=== PATIENT | female | born 1960 | race Caucasian/White ===

== ENCOUNTER 2017-06-28 08:00 | Day surgery (SDC) | payer MEDICARE, OTHER ==
[~2017-06-28 08:00] MED LIST: ACEASPCAF PO; ALBIPROI INH; ALBU90OI61 INH; AMIO200 PO; ASPI325; ASPI325 PO; ASPI81CH PO; ATOR80 PO; BUME2 PO; CARV25; CARV25 PO; CARV3.125 PO; CEPH500 PO; CLOP75 PO; COLCRYS0.6 MG PO; FAMO20 PO; FURO40 PO; FURO80 PO; GLIP10 PO; GUAI600T33 PO; HYDACE5; HYDCHL25 PO; HYDGUAL120 PO; HYDR1TAB94 PO; IBUP400 PO; INSN100I SC; INSR10I SC; INSU100I6 SC; INSULANPEN SC; LEVFLO500 PO; LEVO750 PO; LISHYD1012; LISI20 PO; LOSA25 PO; METF500 PO; METF850; METFORMIN; METOLAZONE PO; MULTCH; NAPR550 PO; NATE60; OXYACE7.5T PO; PIOG15 PO; POTCHL20ER PO; PRAV20 PO; PRED20 PO; Percocet 5-3251 EACH PO; SPIR25 PO; TIOT18 INH; VARE1 PO; VITAMIN D-32000 UNIT PO; VYTORIN; ZESTRIL PO; [UNRECOGNIZED DRUG - CODE] PO
[2017-12-27] MEDS ORDERED: Midodrine HCl10 MG PO (11:13)
[2017-12-29] MEDS ORDERED: PANT20 PO (11:53)
[2018-04-01] MEDS ORDERED: ALBU2.5V5 NEB (17:24)
[2018-04-01] MEDS ORDERED: DOCU100 PO (17:25)
[2018-04-01] MEDS ORDERED: LINZESS145 MCG PO (17:26)
[2018-04-01] MEDS ORDERED: POTCHL20ER PO (17:29)
[2018-04-01] MEDS ORDERED: METO5A PO ×2 (17:30→22:47)
[2018-04-01] MEDS ORDERED: BISA5EC PO (22:38)
[2018-04-01] MEDS ORDERED: BISA10S PR (22:41)
[2018-04-01] MEDS ORDERED: Milk Of Ma400 MG/5 M PO (22:43)
[2018-04-01] MEDS ORDERED: GAVILAX17 GM PO (22:44)
[2018-04-01] MEDS ORDERED: TUMS X-STR300 MG PO (22:49)
[2018-04-10] MEDS ORDERED: ALBU2.5V5 NEB (13:08)
[2018-04-10] MEDS ORDERED: Atropine Su0.1 MG/ML SL (13:09)
[2018-04-10] MEDS ORDERED: SUBLIMAZE50 MCG/1 M IV (13:19)
[2018-04-10] MEDS ORDERED: Lorazepam2 MG/1 ML IV (13:24)
[2018-04-10] MEDS ORDERED: Transderm-Scop1 EACH TD (13:25)
== END 2017-06-28 10:53 | disposition home or self-care (01) ==
LOC: WOUND 08:00
PROC: 2W1RX6Z Compression of Left Lower Leg using Pressure Dressing (ICD-10-PCS; principal; 2017-06-28)
PROC: 2W1QX6Z Compression of Right Lower Leg using Pressure Dressing (ICD-10-PCS; principal; 2017-06-28)
DX: Z48.00 Encounter for change or removal of nonsurgical wound dressing (principal); E11.621 Type 2 diabetes mellitus with foot ulcer; L97.221 Non-pressure chronic ulcer of left calf limited to breakdown of skin; F17.210 Nicotine dependence, cigarettes, uncomplicated; R60.9 Edema, unspecified
CPT/HCPCS: G0463

== ENCOUNTER 2017-07-05 12:24 | Day surgery (SDC) | payer MEDICARE, OTHER ==
[2017-12-27] MEDS ORDERED: Midodrine HCl10 MG PO (11:13)
[2017-12-29] MEDS ORDERED: PANT20 PO (11:53)
[2018-04-01] MEDS ORDERED: ALBU2.5V5 NEB (17:24)
[2018-04-01] MEDS ORDERED: DOCU100 PO (17:25)
[2018-04-01] MEDS ORDERED: LINZESS145 MCG PO (17:26)
[2018-04-01] MEDS ORDERED: POTCHL20ER PO (17:29)
[2018-04-01] MEDS ORDERED: METO5A PO ×2 (17:30→22:47)
[2018-04-01] MEDS ORDERED: BISA5EC PO (22:38)
[2018-04-01] MEDS ORDERED: BISA10S PR (22:41)
[2018-04-01] MEDS ORDERED: Milk Of Ma400 MG/5 M PO (22:43)
[2018-04-01] MEDS ORDERED: GAVILAX17 GM PO (22:44)
[2018-04-01] MEDS ORDERED: TUMS X-STR300 MG PO (22:49)
[2018-04-10] MEDS ORDERED: ALBU2.5V5 NEB (13:08)
[2018-04-10] MEDS ORDERED: Atropine Su0.1 MG/ML SL (13:09)
[2018-04-10] MEDS ORDERED: SUBLIMAZE50 MCG/1 M IV (13:19)
[2018-04-10] MEDS ORDERED: Lorazepam2 MG/1 ML IV (13:24)
[2018-04-10] MEDS ORDERED: Transderm-Scop1 EACH TD (13:25)
== END 2017-07-05 16:10 | disposition home or self-care (01) ==
LOC: WOUND 12:24
PROC: 2W1RX7Z Compression of Left Lower Leg using Intermittent Pressure Device (ICD-10-PCS; principal; 2017-07-05)
DX: Z48.00 Encounter for change or removal of nonsurgical wound dressing (principal); E11.622 Type 2 diabetes mellitus with other skin ulcer; E11.21 Type 2 diabetes mellitus with diabetic nephropathy; F17.210 Nicotine dependence, cigarettes, uncomplicated; L97.221 Non-pressure chronic ulcer of left calf limited to breakdown of skin

== ENCOUNTER 2017-07-12 12:30 | Day surgery (SDC) | payer MEDICARE, OTHER ==
[2017-12-27] MEDS ORDERED: Midodrine HCl10 MG PO (11:13)
[2017-12-29] MEDS ORDERED: PANT20 PO (11:53)
[2018-04-01] MEDS ORDERED: ALBU2.5V5 NEB (17:24)
[2018-04-01] MEDS ORDERED: DOCU100 PO (17:25)
[2018-04-01] MEDS ORDERED: LINZESS145 MCG PO (17:26)
[2018-04-01] MEDS ORDERED: POTCHL20ER PO (17:29)
[2018-04-01] MEDS ORDERED: METO5A PO ×2 (17:30→22:47)
[2018-04-01] MEDS ORDERED: BISA5EC PO (22:38)
[2018-04-01] MEDS ORDERED: BISA10S PR (22:41)
[2018-04-01] MEDS ORDERED: Milk Of Ma400 MG/5 M PO (22:43)
[2018-04-01] MEDS ORDERED: GAVILAX17 GM PO (22:44)
[2018-04-01] MEDS ORDERED: TUMS X-STR300 MG PO (22:49)
[2018-04-10] MEDS ORDERED: ALBU2.5V5 NEB (13:08)
[2018-04-10] MEDS ORDERED: Atropine Su0.1 MG/ML SL (13:09)
[2018-04-10] MEDS ORDERED: SUBLIMAZE50 MCG/1 M IV (13:19)
[2018-04-10] MEDS ORDERED: Lorazepam2 MG/1 ML IV (13:24)
[2018-04-10] MEDS ORDERED: Transderm-Scop1 EACH TD (13:25)
== END 2017-07-12 14:54 | disposition home or self-care (01) ==
LOC: WOUND 12:30
PROC: 2W1 Placement, Anatomical Regions, Compression (ICD-10-PCS; principal; 2017-07-12)
PROC: 2W1RX6Z Compression of Left Lower Leg using Pressure Dressing (ICD-10-PCS; principal; 2017-07-12)
PROC: 2W1QX6Z Compression of Right Lower Leg using Pressure Dressing (ICD-10-PCS; principal; 2017-07-12)
DX: Z48.00 Encounter for change or removal of nonsurgical wound dressing (principal); E11.622 Type 2 diabetes mellitus with other skin ulcer; E11.21 Type 2 diabetes mellitus with diabetic nephropathy; L97.221 Non-pressure chronic ulcer of left calf limited to breakdown of skin; F17.210 Nicotine dependence, cigarettes, uncomplicated
CPT/HCPCS: G0463

== ENCOUNTER 2017-07-19 00:56 | Day surgery (SDC) | payer MEDICARE, OTHER ==
[2017-12-27] MEDS ORDERED: Midodrine HCl10 MG PO (11:13)
[2017-12-29] MEDS ORDERED: PANT20 PO (11:53)
[2018-04-01] MEDS ORDERED: ALBU2.5V5 NEB (17:24)
[2018-04-01] MEDS ORDERED: DOCU100 PO (17:25)
[2018-04-01] MEDS ORDERED: LINZESS145 MCG PO (17:26)
[2018-04-01] MEDS ORDERED: POTCHL20ER PO (17:29)
[2018-04-01] MEDS ORDERED: METO5A PO ×2 (17:30→22:47)
[2018-04-01] MEDS ORDERED: BISA5EC PO (22:38)
[2018-04-01] MEDS ORDERED: BISA10S PR (22:41)
[2018-04-01] MEDS ORDERED: Milk Of Ma400 MG/5 M PO (22:43)
[2018-04-01] MEDS ORDERED: GAVILAX17 GM PO (22:44)
[2018-04-01] MEDS ORDERED: TUMS X-STR300 MG PO (22:49)
[2018-04-10] MEDS ORDERED: ALBU2.5V5 NEB (13:08)
[2018-04-10] MEDS ORDERED: Atropine Su0.1 MG/ML SL (13:09)
[2018-04-10] MEDS ORDERED: SUBLIMAZE50 MCG/1 M IV (13:19)
[2018-04-10] MEDS ORDERED: Lorazepam2 MG/1 ML IV (13:24)
[2018-04-10] MEDS ORDERED: Transderm-Scop1 EACH TD (13:25)
== END 2017-07-19 22:44 | disposition home or self-care (01) ==
LOC: WOUND 00:56
DX: Z48.00 Encounter for change or removal of nonsurgical wound dressing (principal); E11.21 Type 2 diabetes mellitus with diabetic nephropathy; L97.221 Non-pressure chronic ulcer of left calf limited to breakdown of skin; F17.210 Nicotine dependence, cigarettes, uncomplicated
CPT/HCPCS: G0463

== ENCOUNTER 2017-09-03 12:18 | Day surgery (SDC) | payer MEDICARE, OTHER ==
[2017-12-27] MEDS ORDERED: Midodrine HCl10 MG PO (11:13)
[2017-12-29] MEDS ORDERED: PANT20 PO (11:53)
[2018-04-01] MEDS ORDERED: ALBU2.5V5 NEB (17:24)
[2018-04-01] MEDS ORDERED: DOCU100 PO (17:25)
[2018-04-01] MEDS ORDERED: LINZESS145 MCG PO (17:26)
[2018-04-01] MEDS ORDERED: POTCHL20ER PO (17:29)
[2018-04-01] MEDS ORDERED: METO5A PO ×2 (17:30→22:47)
[2018-04-01] MEDS ORDERED: BISA5EC PO (22:38)
[2018-04-01] MEDS ORDERED: BISA10S PR (22:41)
[2018-04-01] MEDS ORDERED: Milk Of Ma400 MG/5 M PO (22:43)
[2018-04-01] MEDS ORDERED: GAVILAX17 GM PO (22:44)
[2018-04-01] MEDS ORDERED: TUMS X-STR300 MG PO (22:49)
[2018-04-10] MEDS ORDERED: ALBU2.5V5 NEB (13:08)
[2018-04-10] MEDS ORDERED: Atropine Su0.1 MG/ML SL (13:09)
[2018-04-10] MEDS ORDERED: SUBLIMAZE50 MCG/1 M IV (13:19)
[2018-04-10] MEDS ORDERED: Lorazepam2 MG/1 ML IV (13:24)
[2018-04-10] MEDS ORDERED: Transderm-Scop1 EACH TD (13:25)
== END 2017-09-03 16:52 | disposition home or self-care (01) ==
LOC: WOUND 12:18
DX: E11.21 Type 2 diabetes mellitus with diabetic nephropathy (principal); E11.622 Type 2 diabetes mellitus with other skin ulcer; L97.221 Non-pressure chronic ulcer of left calf limited to breakdown of skin; I87.2 Venous insufficiency (chronic) (peripheral); F17.218 Nicotine dependence, cigarettes, with other nicotine-induced disorders
CPT/HCPCS: 87070; 87075; 87077; 87147; 87186; 87205; G0463

== ENCOUNTER 2017-09-06 01:02 | Day surgery (SDC) | payer MEDICARE, OTHER ==
[2017-12-27] MEDS ORDERED: Midodrine HCl10 MG PO (11:13)
[2017-12-29] MEDS ORDERED: PANT20 PO (11:53)
[2018-04-01] MEDS ORDERED: ALBU2.5V5 NEB (17:24)
[2018-04-01] MEDS ORDERED: DOCU100 PO (17:25)
[2018-04-01] MEDS ORDERED: LINZESS145 MCG PO (17:26)
[2018-04-01] MEDS ORDERED: POTCHL20ER PO (17:29)
[2018-04-01] MEDS ORDERED: METO5A PO ×2 (17:30→22:47)
[2018-04-01] MEDS ORDERED: BISA5EC PO (22:38)
[2018-04-01] MEDS ORDERED: BISA10S PR (22:41)
[2018-04-01] MEDS ORDERED: Milk Of Ma400 MG/5 M PO (22:43)
[2018-04-01] MEDS ORDERED: GAVILAX17 GM PO (22:44)
[2018-04-01] MEDS ORDERED: TUMS X-STR300 MG PO (22:49)
[2018-04-10] MEDS ORDERED: ALBU2.5V5 NEB (13:08)
[2018-04-10] MEDS ORDERED: Atropine Su0.1 MG/ML SL (13:09)
[2018-04-10] MEDS ORDERED: SUBLIMAZE50 MCG/1 M IV (13:19)
[2018-04-10] MEDS ORDERED: Lorazepam2 MG/1 ML IV (13:24)
[2018-04-10] MEDS ORDERED: Transderm-Scop1 EACH TD (13:25)
== END 2017-09-06 22:45 | disposition home or self-care (01) ==
LOC: WOUND 01:02
DX: Z48.00 Encounter for change or removal of nonsurgical wound dressing (principal); E11.622 Type 2 diabetes mellitus with other skin ulcer; L97.221 Non-pressure chronic ulcer of left calf limited to breakdown of skin; E11.21 Type 2 diabetes mellitus with diabetic nephropathy; B95.62 Methicillin resistant Staphylococcus aureus infection as the cause of diseases classified elsewhere; I34.0 Nonrheumatic mitral (valve) insufficiency; F17.218 Nicotine dependence, cigarettes, with other nicotine-induced disorders
CPT/HCPCS: G0463

== ENCOUNTER 2017-09-13 14:10 | Day surgery (SDC) | payer MEDICARE, OTHER ==
[~2017-09-13 14:10] MED LIST changes: +CARV6.25 PO
== END 2017-09-13 22:52 | disposition home or self-care (01) ==
LOC: WOUND 14:10
PROC: 2W1RX6Z Compression of Left Lower Leg using Pressure Dressing (ICD-10-PCS; principal; 2017-09-13)
PROC: 2W1QX6Z Compression of Right Lower Leg using Pressure Dressing (ICD-10-PCS; principal; 2017-09-13)
DX: E11.622 Type 2 diabetes mellitus with other skin ulcer (principal); F17.210 Nicotine dependence, cigarettes, uncomplicated; L97.221 Non-pressure chronic ulcer of left calf limited to breakdown of skin; I87.2 Venous insufficiency (chronic) (peripheral); L97.819 Non-pressure chronic ulcer of other part of right lower leg with unspecified severity; E11.21 Type 2 diabetes mellitus with diabetic nephropathy
CPT/HCPCS: G0463

== ENCOUNTER 2017-09-20 14:12 | Day surgery (SDC) | payer MEDICARE, OTHER | END 2017-09-20 22:48 | disposition home or self-care (01) | LOC: WOUND 14:12 | DX: E11.622 Type 2 diabetes mellitus with other skin ulcer (principal); L97.222 Non-pressure chronic ulcer of left calf with fat layer exposed; E11.21 Type 2 diabetes mellitus with diabetic nephropathy; F17.210 Nicotine dependence, cigarettes, uncomplicated; E66.01 Morbid (severe) obesity due to excess calories ==

== ENCOUNTER 2017-09-27 14:00 | Day surgery (SDC) | payer MEDICARE, OTHER | END 2017-09-27 22:41 | disposition home or self-care (01) | LOC: WOUND 14:00 | PROC: 2W1QX6Z Compression of Right Lower Leg using Pressure Dressing (ICD-10-PCS; principal; 2017-09-27) | DX: E11.622 Type 2 diabetes mellitus with other skin ulcer (principal); F17.210 Nicotine dependence, cigarettes, uncomplicated; E11.21 Type 2 diabetes mellitus with diabetic nephropathy; L97.221 Non-pressure chronic ulcer of left calf limited to breakdown of skin | CPT/HCPCS: G0463 ==

== ENCOUNTER 2017-10-04 00:14 | Day surgery (SDC) | payer MEDICARE, OTHER | END 2017-10-04 22:38 | disposition home or self-care (01) | LOC: WOUND 00:14 | DX: Z48.00 Encounter for change or removal of nonsurgical wound dressing (principal); E11.21 Type 2 diabetes mellitus with diabetic nephropathy; L97.221 Non-pressure chronic ulcer of left calf limited to breakdown of skin; F17.210 Nicotine dependence, cigarettes, uncomplicated | CPT/HCPCS: 87081; G0463 ==

== ENCOUNTER → 2017-10-14 | Outpatient (CLI) | payer MEDICARE, OTHER ==
[2017-10-14 14:51] LABS: BASOPHILS ABSOLUTE AUTO 0.04 K/mm3 (0.00-0.23); BASOPHILS PERCENT AUTO 0 % (0-2); EOSINOPHILS ABSOLUTE AUTO 0.07 K/mm3 (0.00-0.68); EOSINOPHILS PERCENT AUTO 1 % (0-6); Hematocrit 37.3 % (33.0-51.0); IMMATURE GRAN ABSOLUTE AUTO 0.06 K/mm3 (0.00-0.10); IMMATURE GRAN PERCENT AUTO 0 % (0-1); LYMPHOCYTES ABSOLUTE AUTO 0.97 K/mm3 (0.84-5.20); LYMPHOCYTES PERCENT AUTO 7 % (21-46); MONOCYTES ABSOLUTE AUTO 0.63 K/mm3 (0.16-1.47); MONOCYTES PERCENT AUTO 5 % (4-13); Mean Corpuscular HGB Conc 32.2 g/dL (31.5-36.5); Mean Corpuscular Volume 90 fL (80-100); Mean Platelet Volume 11.8 fL (9.1-12.4); NEUTROPHILS ABSOLUTE AUTO 11.61 K/mm3 (1.96-9.15); NEUTROPHILS PERCENT AUTO 87 % (41-73); Platelet Count 134 K/mm3 (150-400); RDW Coefficient Variation 16.5 % (11.7-14.2); RDW Standard Deviation 54.3 fL (35.1-46.3); Red Blood Cell Count 4.14 M/mm3 (3.80-5.20); White Blood Cell Count 13.38 K/mm3 (4.00-11.30)
== END | disposition home or self-care (01) ==
LOC: LAB EV 14:45 → LAB SHORT 14:45
PROVIDERS: Physician Assistant
DX: M79.642 Pain in left hand (principal)
CPT/HCPCS: 84550; 85025

== ENCOUNTER 2017-12-10 13:35 | Inpatient (IN) | payer MEDICARE, OTHER ==
[~2017-12-10] VITALS: Ht 177.8 cm; Wt 112.5 kg
[~2017-12-10 13:35] MED LIST changes: -CARV6.25 PO
[2017-12-10] MEDS ORDERED: TAMS.4ER PO (13:56)
[2017-12-10 14:34] LABS: BASOPHILS ABSOLUTE AUTO 0.06 K/mm3 (0.00-0.23); BASOPHILS PERCENT AUTO 0 % (0-2); EOSINOPHILS ABSOLUTE AUTO 0.09 K/mm3 (0.00-0.68); EOSINOPHILS PERCENT AUTO 1 % (0-6); Hematocrit 35.3 % (33.0-51.0); Hemoglobin 10.9 g/dL (11.5-16.0); IMMATURE GRAN ABSOLUTE AUTO 0.12 K/mm3 (0.00-0.10); IMMATURE GRAN PERCENT AUTO 1 % (0-1); LYMPHOCYTES PERCENT AUTO 6 % (21-46); MONOCYTES ABSOLUTE AUTO 0.94 K/mm3 (0.16-1.47); MONOCYTES PERCENT AUTO 6 % (4-13); Mean Corpuscular HGB 28.5 pg (26.0-34.0); Mean Corpuscular HGB Conc 30.9 g/dL (31.5-36.5); Mean Corpuscular Volume 92 fL (80-100); Mean Platelet Volume 11.3 fL (9.1-12.4); NEUTROPHILS ABSOLUTE AUTO 12.94 K/mm3 (1.96-9.15); NEUTROPHILS PERCENT AUTO 86 % (41-73); Platelet Count 219 K/mm3 (150-400); RDW Coefficient Variation 16.6 % (11.7-14.2); RDW Standard Deviation 56.2 fL (35.1-46.3); Red Blood Cell Count 3.83 M/mm3 (3.80-5.20); White Blood Cell Count 15.05 K/mm3 (4.00-11.30)
[2017-12-10 15:04] LABS: Albumin, Blood 2.6 g/dL (3.4-5.0); Albumin/Globulin Ratio 0.6 (0.8-1.8); Bilirubin, Total 0.7 mg/dL (0.1-1.0); Bun/Creatinine Ratio 49.4 (12.0-20.0); Calcium, Blood 6.7 mg/dL (8.5-10.1); Creatinine, Blood 2.45 mg/dL (0.40-1.00); Globulin, Blood 4.3 g/dL (2.2-4.0); Potassium, Blood 4.1 mmol/L (3.5-5.5); Total Protein, Blood 6.9 g/dL (6.4-8.2); Troponin I 0.272 ng/mL (0.000-0.040)
[2017-12-10 16:31] LABS: Source, Urine Catheter
[2017-12-10 16:38] LABS: Bilirubin, Urine Neg (Neg); Blood, Urine Neg (Neg); Glucose Qualitative, Urine Neg (Neg); Ketones, Urine Neg (Neg); Leukocyte Esterase, Urine 1+ (Neg); Nitrite, Urine Neg (Neg); Protein, Urine 1+ (Neg); Specific Gravity, Urine 1.015 (1.003-1.022); Urobilinogen, Urine NORM (Normal)
[2017-12-10 16:45] LABS: Appearance, Urine Clear (Clear); Color, Urine Yellow (P-Yellow)
[2017-12-10 16:46] LABS: Bacteria Mod /hpf; Red Blood Cells, Urine 0-2 /hpf (0-2); Squamous Epithelial Cells Few /hpf (Few)
[2017-12-10 17:22] LABS: PCO2 Arterial 41.2 mmHg (35-45); PO2 Arterial 79.7 mmHg (80-100); pH Blood Arterial 7.41 (7.35-7.45)
[2017-12-11 05:24] LABS: BASOPHILS ABSOLUTE AUTO 0.01 K/mm3 (0.00-0.23); BASOPHILS PERCENT AUTO 0 % (0-2); EOSINOPHILS ABSOLUTE AUTO 0.01 K/mm3 (0.00-0.68); EOSINOPHILS PERCENT AUTO 0 % (0-6); Hematocrit 33.3 % (33.0-51.0); Hemoglobin 10.6 g/dL (11.5-16.0); IMMATURE GRAN PERCENT AUTO 1 % (0-1); LYMPHOCYTES ABSOLUTE AUTO 0.48 K/mm3 (0.84-5.20); LYMPHOCYTES PERCENT AUTO 3 % (21-46); MONOCYTES ABSOLUTE AUTO 0.16 K/mm3 (0.16-1.47); MONOCYTES PERCENT AUTO 1 % (4-13); Mean Corpuscular HGB 28.5 pg (26.0-34.0); Mean Corpuscular HGB Conc 31.8 g/dL (31.5-36.5); Mean Corpuscular Volume 90 fL (80-100); Mean Platelet Volume 11.4 fL (9.1-12.4); NEUTROPHILS ABSOLUTE AUTO 15.26 K/mm3 (1.96-9.15); NEUTROPHILS PERCENT AUTO 95 % (41-73); Platelet Count 241 K/mm3 (150-400); RDW Coefficient Variation 16.4 % (11.7-14.2); Red Blood Cell Count 3.72 M/mm3 (3.80-5.20); White Blood Cell Count 16.02 K/mm3 (4.00-11.30)
[2017-12-11 05:46] LABS: Bun/Creatinine Ratio 49.4 (12.0-20.0); Calcium, Blood 6.8 mg/dL (8.5-10.1); Creatinine, Blood 2.55 mg/dL (0.40-1.00); Potassium, Blood 4.2 mmol/L (3.5-5.5)
[2017-12-12 05:31] LABS: Bun/Creatinine Ratio 58.4 (12.0-20.0); Calcium, Blood 6.6 mg/dL (8.5-10.1); Creatinine, Blood 2.31 mg/dL (0.40-1.00); Potassium, Blood 3.9 mmol/L (3.5-5.5)
[2017-12-13 05:04] LABS: Hematocrit 32.5 % (33.0-51.0); Hemoglobin 10.2 g/dL (11.5-16.0)
[2017-12-13 05:28] LABS: Albumin, Blood 2.7 g/dL (3.4-5.0); Anion Gap 13 mmol/L (6-16); Blood Urea Nitrogen 138 mg/dL (8-24); Bun/Creatinine Ratio 57.3 (12.0-20.0); CO2, Blood 24 mmol/L (21-32); Calcium, Blood 6.4 mg/dL (8.5-10.1); Chloride, Blood 100 mmol/L (98-108); Creatinine, Blood 2.41 mg/dL (0.40-1.00); Glomerular Filtration Rate 22 (60-); Glucose, Blood 95 mg/dL (70-99); Magnesium, Blood 2.1 mg/dL (1.6-2.4); Phosphorus, Blood 5.3 mg/dL (2.5-4.9); Potassium, Blood 4.7 mmol/L (3.5-5.5); Sodium, Blood 137 mmol/L (136-145)
[2017-12-14 05:32] LABS: Hematocrit 33.3 % (33.0-51.0); Hemoglobin 10.3 g/dL (11.5-16.0)
[2017-12-14 05:53] LABS: Albumin, Blood 2.8 g/dL (3.4-5.0); Anion Gap 12 mmol/L (6-16); Blood Urea Nitrogen 144 mg/dL (8-24); Bun/Creatinine Ratio 60.8 (12.0-20.0); CO2, Blood 25 mmol/L (21-32); Calcium, Blood 6.6 mg/dL (8.5-10.1); Chloride, Blood 100 mmol/L (98-108); Creatinine, Blood 2.37 mg/dL (0.40-1.00); Glomerular Filtration Rate 22 (60-); Glucose, Blood 102 mg/dL (70-99); Magnesium, Blood 2.3 mg/dL (1.6-2.4); Phosphorus, Blood 5.8 mg/dL (2.5-4.9); Potassium, Blood 4.4 mmol/L (3.5-5.5); Sodium, Blood 137 mmol/L (136-145)
== END 2017-12-14 13:16 | disposition home health service (06) | DRG 682 ==
LOC: ER 13:35 → ERHOLD 13:36 → MEDS 13:36 → ENPENDDIS 12-14 11:28 → MEDS 12-14 13:16
PROVIDERS: Hospitalist; Internal Medicine; Internal Medicine Nephrology
DX: N17.9 Acute kidney failure, unspecified (principal); G93.41 Metabolic encephalopathy; E87.2 Acidosis; Z79.82 Long term (current) use of aspirin; N25.81 Secondary hyperparathyroidism of renal origin; Z79.4 Long term (current) use of insulin; J44.9 Chronic obstructive pulmonary disease, unspecified; I25.5 Ischemic cardiomyopathy; M10.9 Gout, unspecified; Z95.810 Presence of automatic (implantable) cardiac defibrillator; Z86.73 Personal history of transient ischemic attack (TIA), and cerebral infarction without residual deficits; E11.40 Type 2 diabetes mellitus with diabetic neuropathy, unspecified; E11.649 Type 2 diabetes mellitus with hypoglycemia without coma; N18.3 Chronic kidney disease, stage 3 (moderate); E11.22 Type 2 diabetes mellitus with diabetic chronic kidney disease; E87.70 Fluid overload, unspecified; E11.51 Type 2 diabetes mellitus with diabetic peripheral angiopathy without gangrene; I12.9 Hypertensive chronic kidney disease with stage 1 through stage 4 chronic kidney disease, or unspecified chronic kidney disease; D63.1 Anemia in chronic kidney disease; E86.1 Hypovolemia; R80.9 Proteinuria, unspecified; E88.09 Other disorders of plasma-protein metabolism, not elsewhere classified; R53.81 Other malaise; Z68.35 Body mass index [BMI] 35.0-35.9, adult; E66.9 Obesity, unspecified
CPT/HCPCS: 36415; 36600; 71046; 76770; 80048; 80053; 80069; 81001; 82803; 82947; 83605; 83735; 83880; 84484; 85014; 85018; 85025; 87040; 93005; 93010; 94010; 94640; 94664; 94667; 94760; 94762; 96361; 96365; 96366; 96375; 96376; 97110; 97116; 97161; 97166; 97530; 98960; 99285; 99407; G0378; G0515; G8978; G8979; G8980; G8987; G8988; J0456; J0696; J1815; J2405; J2920; J7030; J7050; J7120

== ENCOUNTER 2017-12-21 07:40 | Inpatient (IN) | payer MEDICARE, OTHER ==
[~2017-12-21] VITALS: Ht 175.3 cm; Wt 171.0 kg
[~2017-12-21 07:40] MED LIST changes: +TAMS.4ER PO
[2017-12-21 08:12] LABS: BASOPHILS ABSOLUTE AUTO 0.03 K/mm3 (0.00-0.23); BASOPHILS PERCENT AUTO 0 % (0-2); EOSINOPHILS ABSOLUTE AUTO 0.01 K/mm3 (0.00-0.68); EOSINOPHILS PERCENT AUTO 0 % (0-6); Hematocrit 31.5 % (33.0-51.0); Hemoglobin 9.9 g/dL (11.5-16.0); IMMATURE GRAN ABSOLUTE AUTO 0.09 K/mm3 (0.00-0.10); IMMATURE GRAN PERCENT AUTO 1 % (0-1); LYMPHOCYTES ABSOLUTE AUTO 1.13 K/mm3 (0.84-5.20); LYMPHOCYTES PERCENT AUTO 8 % (21-46); MONOCYTES ABSOLUTE AUTO 1.29 K/mm3 (0.16-1.47); MONOCYTES PERCENT AUTO 9 % (4-13); Mean Corpuscular HGB 28.4 pg (26.0-34.0); Mean Corpuscular HGB Conc 31.4 g/dL (31.5-36.5); Mean Corpuscular Volume 90 fL (80-100); Mean Platelet Volume 11.2 fL (9.1-12.4); NEUTROPHILS ABSOLUTE AUTO 11.62 K/mm3 (1.96-9.15); NEUTROPHILS PERCENT AUTO 82 % (41-73); Platelet Count 219 K/mm3 (150-400); RDW Coefficient Variation 16.7 % (11.7-14.2); RDW Standard Deviation 55.3 fL (35.1-46.3); Red Blood Cell Count 3.49 M/mm3 (3.80-5.20); White Blood Cell Count 14.17 K/mm3 (4.00-11.30)
[2017-12-21] MEDS ORDERED: GLIP10 PO (08:28)
[2017-12-21 09:15] LABS: Albumin, Blood 2.6 g/dL (3.4-5.0); Albumin/Globulin Ratio 0.6 (0.8-1.8); Bilirubin, Total 0.6 mg/dL (0.1-1.0); Bun/Creatinine Ratio 53.8 (12.0-20.0); Calcium, Blood 5.6 mg/dL (8.5-10.1); Creatinine, Blood 2.1 mg/dL (0.40-1.00); Globulin, Blood 4.4 g/dL (2.2-4.0); Potassium, Blood 3.4 mmol/L (3.5-5.5); Troponin I 0.532 ng/mL (0.000-0.040)
[2017-12-21 15:21] LABS: Source, Urine Catheter
[2017-12-21 15:25] LABS: Bilirubin, Urine Neg (Neg); Blood, Urine Neg (Neg); Glucose Qualitative, Urine Neg (Neg); Ketones, Urine Neg (Neg); Leukocyte Esterase, Urine Neg (Neg); Nitrite, Urine Neg (Neg); Protein, Urine Neg (Neg); Urobilinogen, Urine NORM (Normal)
[2017-12-21 15:47] LABS: Appearance, Urine Clear (Clear); Color, Urine Yellow (P-Yellow)
[2017-12-21 16:45] LABS: Magnesium, Blood 2.2 mg/dL (1.6-2.4); Phosphorus, Blood 4.7 mg/dL (2.5-4.9); Troponin I 0.415 ng/mL (0.000-0.040)
[2017-12-22 05:04] LABS: BASOPHILS ABSOLUTE AUTO 0.04 K/mm3 (0.00-0.23); BASOPHILS PERCENT AUTO 0 % (0-2); EOSINOPHILS ABSOLUTE AUTO 0.04 K/mm3 (0.00-0.68); EOSINOPHILS PERCENT AUTO 0 % (0-6); Hematocrit 28.7 % (33.0-51.0); Hemoglobin 8.9 g/dL (11.5-16.0); IMMATURE GRAN ABSOLUTE AUTO 0.09 K/mm3 (0.00-0.10); IMMATURE GRAN PERCENT AUTO 1 % (0-1); LYMPHOCYTES ABSOLUTE AUTO 1.54 K/mm3 (0.84-5.20); LYMPHOCYTES PERCENT AUTO 10 % (21-46); MONOCYTES PERCENT AUTO 9 % (4-13); Mean Corpuscular HGB 28.3 pg (26.0-34.0); Mean Corpuscular Volume 91 fL (80-100); Mean Platelet Volume 11.3 fL (9.1-12.4); NEUTROPHILS ABSOLUTE AUTO 11.88 K/mm3 (1.96-9.15); NEUTROPHILS PERCENT AUTO 79 % (41-73); NRBC ABSOLUTE 0.02 K/mm3 (0.00-0.02); NRBC Auto 0.1 /100 WBC (0.0-0.2); Platelet Count 212 K/mm3 (150-400); RDW Coefficient Variation 16.9 % (11.7-14.2); Red Blood Cell Count 3.14 M/mm3 (3.80-5.20); White Blood Cell Count 14.99 K/mm3 (4.00-11.30)
[2017-12-22 05:26] LABS: Magnesium, Blood 2.1 mg/dL (1.6-2.4)
[2017-12-22 05:28] LABS: Alanine Aminotransfer (ALT/SGP 393 U/L (12-78); Albumin, Blood 2.3 g/dL (3.4-5.0); Albumin/Globulin Ratio 0.6 (0.8-1.8); Alk Phos 208 U/L (50-136); Anion Gap 12 mmol/L (6-16); Aspartate Aminotrans (AST/SGOT 671 U/L (12-37); Bilirubin, Total 0.7 mg/dL (0.1-1.0); Blood Urea Nitrogen 110 mg/dL (8-24); Bun/Creatinine Ratio 48.7 (12.0-20.0); CO2, Blood 22 mmol/L (21-32); Calcium, Blood 5.6 mg/dL (8.5-10.1); Chloride, Blood 103 mmol/L (98-108); Creatinine, Blood 2.26 mg/dL (0.40-1.00); Glomerular Filtration Rate 24 (60-); Glucose, Blood 64 mg/dL (70-99); Potassium, Blood 3.8 mmol/L (3.5-5.5); Sodium, Blood 137 mmol/L (136-145); Total Protein, Blood 6.3 g/dL (6.4-8.2)
[2017-12-22 05:31] LABS: Cortisol, AM 28.4 ug/dL (6.7-22.6)
[2017-12-23 04:34] LABS: Hemoglobin 9.2 g/dL (11.5-16.0)
[2017-12-23 04:58] LABS: Magnesium, Blood 2.1 mg/dL (1.6-2.4)
[2017-12-23 05:02] LABS: Albumin, Blood 2.2 g/dL (3.4-5.0); Anion Gap 13 mmol/L (6-16); Blood Urea Nitrogen 104 mg/dL (8-24); Bun/Creatinine Ratio 45.6 (12.0-20.0); CO2, Blood 21 mmol/L (21-32); Calcium, Blood 5.7 mg/dL (8.5-10.1); Chloride, Blood 105 mmol/L (98-108); Creatinine, Blood 2.28 mg/dL (0.40-1.00); Glomerular Filtration Rate 23 (60-); Glucose, Blood 73 mg/dL (70-99); Phosphorus, Blood 6.3 mg/dL (2.5-4.9); Potassium, Blood 4.1 mmol/L (3.5-5.5); Sodium, Blood 139 mmol/L (136-145)
[2017-12-24 05:34] LABS: BASOPHILS ABSOLUTE AUTO 0.03 K/mm3 (0.00-0.23); BASOPHILS PERCENT AUTO 0 % (0-2); EOSINOPHILS ABSOLUTE AUTO 0.07 K/mm3 (0.00-0.68); EOSINOPHILS PERCENT AUTO 1 % (0-6); Hematocrit 32.5 % (33.0-51.0); Hemoglobin 9.9 g/dL (11.5-16.0); IMMATURE GRAN ABSOLUTE AUTO 0.07 K/mm3 (0.00-0.10); IMMATURE GRAN PERCENT AUTO 1 % (0-1); LYMPHOCYTES ABSOLUTE AUTO 1.04 K/mm3 (0.84-5.20); LYMPHOCYTES PERCENT AUTO 8 % (21-46); MONOCYTES ABSOLUTE AUTO 1.18 K/mm3 (0.16-1.47); MONOCYTES PERCENT AUTO 9 % (4-13); Mean Corpuscular HGB Conc 30.5 g/dL (31.5-36.5); Mean Corpuscular Volume 92 fL (80-100); Mean Platelet Volume 11.5 fL (9.1-12.4); NEUTROPHILS ABSOLUTE AUTO 10.41 K/mm3 (1.96-9.15); NEUTROPHILS PERCENT AUTO 82 % (41-73); NRBC ABSOLUTE 0.06 K/mm3 (0.00-0.02); NRBC Auto 0.5 /100 WBC (0.0-0.2); Platelet Count 227 K/mm3 (150-400); RDW Standard Deviation 56.7 fL (35.1-46.3); Red Blood Cell Count 3.54 M/mm3 (3.80-5.20)
[2017-12-24 06:00] LABS: Alanine Aminotransfer (ALT/SGP 413 U/L (12-78); Albumin, Blood 2.4 g/dL (3.4-5.0); Albumin/Globulin Ratio 0.6 (0.8-1.8); Anion Gap 14 mmol/L (6-16); Aspartate Aminotrans (AST/SGOT 345 U/L (12-37); Bilirubin, Total 0.8 mg/dL (0.1-1.0); Blood Urea Nitrogen 111 mg/dL (8-24); Bun/Creatinine Ratio 45.3 (12.0-20.0); CO2, Blood 19 mmol/L (21-32); Calcium, Blood 6.3 mg/dL (8.5-10.1); Chloride, Blood 102 mmol/L (98-108); Creatinine, Blood 2.45 mg/dL (0.40-1.00); Globulin, Blood 4.1 g/dL (2.2-4.0); Glomerular Filtration Rate 21 (60-); Glucose, Blood 165 mg/dL (70-99); Magnesium, Blood 2.3 mg/dL (1.6-2.4); Phosphorus, Blood 5.8 mg/dL (2.5-4.9); Potassium, Blood 4.6 mmol/L (3.5-5.5); Sodium, Blood 135 mmol/L (136-145); Total Protein, Blood 6.5 g/dL (6.4-8.2)
[2017-12-24 06:03] LABS: Alk Phos 301 U/L (50-136)
[2017-12-25 05:41] LABS: BASOPHILS ABSOLUTE AUTO 0.03 K/mm3 (0.00-0.23); BASOPHILS PERCENT AUTO 0 % (0-2); EOSINOPHILS ABSOLUTE AUTO 0.06 K/mm3 (0.00-0.68); EOSINOPHILS PERCENT AUTO 1 % (0-6); Hematocrit 34.7 % (33.0-51.0); Hemoglobin 10.6 g/dL (11.5-16.0); IMMATURE GRAN ABSOLUTE AUTO 0.07 K/mm3 (0.00-0.10); IMMATURE GRAN PERCENT AUTO 1 % (0-1); LYMPHOCYTES ABSOLUTE AUTO 1.15 K/mm3 (0.84-5.20); LYMPHOCYTES PERCENT AUTO 9 % (21-46); MONOCYTES ABSOLUTE AUTO 0.88 K/mm3 (0.16-1.47); MONOCYTES PERCENT AUTO 7 % (4-13); Mean Corpuscular HGB Conc 30.5 g/dL (31.5-36.5); Mean Corpuscular Volume 92 fL (80-100); Mean Platelet Volume 11.2 fL (9.1-12.4); NEUTROPHILS ABSOLUTE AUTO 10.03 K/mm3 (1.96-9.15); NEUTROPHILS PERCENT AUTO 82 % (41-73); NRBC Auto 0.8 /100 WBC (0.0-0.2); Platelet Count 197 K/mm3 (150-400); RDW Coefficient Variation 16.9 % (11.7-14.2); RDW Standard Deviation 55.3 fL (35.1-46.3); Red Blood Cell Count 3.79 M/mm3 (3.80-5.20); White Blood Cell Count 12.22 K/mm3 (4.00-11.30)
[2017-12-25 06:30] LABS: Albumin, Blood 2.3 g/dL (3.4-5.0); Anion Gap 16 mmol/L (6-16); Blood Urea Nitrogen 110 mg/dL (8-24); Bun/Creatinine Ratio 40.4 (12.0-20.0); CO2, Blood 15 mmol/L (21-32); Calcium, Blood 7.5 mg/dL (8.5-10.1); Chloride, Blood 101 mmol/L (98-108); Creatinine, Blood 2.72 mg/dL (0.40-1.00); Glomerular Filtration Rate 19 (60-); Glucose, Blood 117 mg/dL (70-99); Magnesium, Blood 2.2 mg/dL (1.6-2.4); Phosphorus, Blood 5.4 mg/dL (2.5-4.9); Potassium, Blood 4.9 mmol/L (3.5-5.5); Sodium, Blood 132 mmol/L (136-145); Triiodothyronine, Free 1.17 pg/mL (2.18-3.98)
[2017-12-25 13:25] LABS: HBSAG SCREEN Negative (Negative); HEP A AB, IGM Negative (Negative); HEP B CORE AB, IGM Negative (Negative); HEP C VIRUS AB <0.1 (0.0-0.9)
[2017-12-26 05:29] LABS: Hematocrit 32.5 % (33.0-51.0); Hemoglobin 9.9 g/dL (11.5-16.0)
[2017-12-26 05:54] LABS: Alanine Aminotransfer (ALT/SGP 393 U/L (12-78); Albumin, Blood 2.2 g/dL (3.4-5.0); Albumin/Globulin Ratio 0.6 (0.8-1.8); Alk Phos 298 U/L (50-136); Anion Gap 13 mmol/L (6-16); Aspartate Aminotrans (AST/SGOT 179 U/L (12-37); Bilirubin, Total 0.9 mg/dL (0.1-1.0); Blood Urea Nitrogen 111 mg/dL (8-24); Bun/Creatinine Ratio 40.2 (12.0-20.0); CO2, Blood 21 mmol/L (21-32); Calcium, Blood 8.7 mg/dL (8.5-10.1); Chloride, Blood 100 mmol/L (98-108); Creatinine, Blood 2.76 mg/dL (0.40-1.00); Globulin, Blood 3.8 g/dL (2.2-4.0); Glomerular Filtration Rate 19 (60-); Glucose, Blood 116 mg/dL (70-99); Magnesium, Blood 2.1 mg/dL (1.6-2.4); Potassium, Blood 4.7 mmol/L (3.5-5.5); Sodium, Blood 134 mmol/L (136-145)
[2017-12-27 05:25] LABS: Hematocrit 33.1 % (33.0-51.0); Hemoglobin 10.2 g/dL (11.5-16.0)
[2017-12-27 05:54] LABS: Albumin, Blood 2.3 g/dL (3.4-5.0); Anion Gap 12 mmol/L (6-16); Blood Urea Nitrogen 114 mg/dL (8-24); CO2, Blood 24 mmol/L (21-32); Calcium, Blood 9.7 mg/dL (8.5-10.1); Chloride, Blood 101 mmol/L (98-108); Creatinine, Blood 2.65 mg/dL (0.40-1.00); Glomerular Filtration Rate 20 (60-); Glucose, Blood 135 mg/dL (70-99); Magnesium, Blood 2.2 mg/dL (1.6-2.4); Phosphorus, Blood 5.3 mg/dL (2.5-4.9); Potassium, Blood 4.4 mmol/L (3.5-5.5); Sodium, Blood 137 mmol/L (136-145)
[2017-12-27] MEDS ORDERED: LEVEMIR FL100 UNIT/1 SC (11:09)
[2017-12-27] MEDS ORDERED: CALC.25 PO (11:10)
[2017-12-27] MEDS ORDERED: TUMS200 MG PO (11:11)
[2017-12-27] MEDS ORDERED: Novolog Fl100 UNIT/1 SC (11:12)
[2017-12-27] MEDS ORDERED: MIDO5 PO (11:13)
[2017-12-27] MEDS ORDERED: LIOT25 PO (11:14)
[2017-12-27] MEDS ORDERED: ROXICODONE5 MG PO (11:15)
[2017-12-27] MEDS ORDERED: Vitamin D2000 UNIT PO (11:16)
[2017-12-27] MEDS ORDERED: SODBIC650 PO (11:16)
[2017-12-28] MEDS ORDERED: ACET325 PO (14:45)
[2017-12-28] MEDS ORDERED: ONDA4 PO (14:46)
== END 2017-12-27 15:20 | DRG 683 ==
LOC: ER 07:40 → MEDS 07:41 → ER 10:31 → MEDS 10:31 → PCU 12-22 08:43 → MEDS 12-23 14:25 → ENPENDDIS 12-27 09:56 → MEDS 12-27 15:20
PROVIDERS: Emergency Medicine; Internal Medicine; Internal Medicine Nephrology
DX: N17.9 Acute kidney failure, unspecified (principal); I13.0 Hypertensive heart and chronic kidney disease with heart failure and stage 1 through stage 4 chronic kidney disease, or unspecified chronic kidney disease; I50.42 Chronic combined systolic (congestive) and diastolic (congestive) heart failure; E87.1 Hypo-osmolality and hyponatremia; N18.4 Chronic kidney disease, stage 4 (severe); E11.22 Type 2 diabetes mellitus with diabetic chronic kidney disease; Z79.4 Long term (current) use of insulin; I95.9 Hypotension, unspecified; K75.81 Nonalcoholic steatohepatitis (NASH); E83.51 Hypocalcemia; I25.5 Ischemic cardiomyopathy; E03.9 Hypothyroidism, unspecified; J44.9 Chronic obstructive pulmonary disease, unspecified; Z95.810 Presence of automatic (implantable) cardiac defibrillator; D63.1 Anemia in chronic kidney disease; N25.81 Secondary hyperparathyroidism of renal origin
CPT/HCPCS: 36415; 36416; 51702; 71045; 76700; 80048; 80053; 80069; 80074; 81003; 82306; 82330; 82533; 82550; 82947; 83735; 83970; 84100; 84132; 84436; 84443; 84481; 84484; 85014; 85018; 85025; 87081; 93005; 93010; 93922; 94640; 94664; 94760; 94762; 96360; 96361; 97110; 97162; 97166; 97530; 97535; 98960; 99285-25; C8929; G0480; G8978; G8979; G8987; G8988; J0610; J0696; J0881; J1644; J1815; J2405; J7030; Q0163; Q9957

== ENCOUNTER 2017-12-28 04:05 | Observation (INO) | payer MEDICARE, OTHER ==
[~2017-12-28] VITALS: Ht 162.6 cm; Wt 124.9 kg
[~2017-12-28 04:05] MED LIST changes: +CALC.25 PO; +LEVEMIR FL100 UNIT/1 SC; +LIOT25 PO; +MIDO5 PO; +Novolog Fl100 UNIT/1 SC; +ROXICODONE5 MG PO; +SODBIC650 PO; +TUMS200 MG PO; +Vitamin D2000 UNIT PO
[2017-12-28 04:47] LABS: BASOPHILS ABSOLUTE AUTO 0.02 K/mm3 (0.00-0.23); BASOPHILS PERCENT AUTO 0 % (0-2); EOSINOPHILS ABSOLUTE AUTO 0.07 K/mm3 (0.00-0.68); EOSINOPHILS PERCENT AUTO 1 % (0-6); Hematocrit 36.2 % (33.0-51.0); Hemoglobin 11.1 g/dL (11.5-16.0); IMMATURE GRAN ABSOLUTE AUTO 0.04 K/mm3 (0.00-0.10); IMMATURE GRAN PERCENT AUTO 1 % (0-1); LYMPHOCYTES ABSOLUTE AUTO 0.66 K/mm3 (0.84-5.20); LYMPHOCYTES PERCENT AUTO 8 % (21-46); MONOCYTES ABSOLUTE AUTO 0.99 K/mm3 (0.16-1.47); MONOCYTES PERCENT AUTO 12 % (4-13); Mean Corpuscular HGB 28.2 pg (26.0-34.0); Mean Corpuscular HGB Conc 30.7 g/dL (31.5-36.5); Mean Corpuscular Volume 92 fL (80-100); Mean Platelet Volume 11.6 fL (9.1-12.4); NEUTROPHILS ABSOLUTE AUTO 6.37 K/mm3 (1.96-9.15); NEUTROPHILS PERCENT AUTO 78 % (41-73); NRBC ABSOLUTE 0.05 K/mm3 (0.00-0.02); NRBC Auto 0.6 /100 WBC (0.0-0.2); Platelet Count 196 K/mm3 (150-400); RDW Coefficient Variation 17.9 % (11.7-14.2); RDW Standard Deviation 56.8 fL (35.1-46.3); Red Blood Cell Count 3.93 M/mm3 (3.80-5.20); White Blood Cell Count 8.15 K/mm3 (4.00-11.30)
[2017-12-28 05:11] LABS: Albumin, Blood 2.5 g/dL (3.4-5.0); Albumin/Globulin Ratio 0.7 (0.8-1.8); Bilirubin, Total 0.7 mg/dL (0.1-1.0); Bun/Creatinine Ratio 43.1 (12.0-20.0); Calcium, Blood 10.5 mg/dL (8.5-10.1); Creatinine, Blood 2.6 mg/dL (0.40-1.00); Globulin, Blood 3.8 g/dL (2.2-4.0); Potassium, Blood 4.7 mmol/L (3.5-5.5); Total Protein, Blood 6.3 g/dL (6.4-8.2)
[2017-12-28 12:35] LABS: Hematocrit 35.7 % (33.0-51.0); Hemoglobin 10.9 g/dL (11.5-16.0)
[2017-12-28] MEDS ORDERED: ACET325 PO (14:45)
[2017-12-28] MEDS ORDERED: ONDA4 PO (14:46)
[2017-12-29 05:01] LABS: BASOPHILS ABSOLUTE AUTO 0.02 K/mm3 (0.00-0.23); BASOPHILS PERCENT AUTO 0 % (0-2); EOSINOPHILS ABSOLUTE AUTO 0.19 K/mm3 (0.00-0.68); EOSINOPHILS PERCENT AUTO 2 % (0-6); Hematocrit 37.4 % (33.0-51.0); IMMATURE GRAN ABSOLUTE AUTO 0.03 K/mm3 (0.00-0.10); IMMATURE GRAN PERCENT AUTO 0 % (0-1); LYMPHOCYTES ABSOLUTE AUTO 0.86 K/mm3 (0.84-5.20); LYMPHOCYTES PERCENT AUTO 9 % (21-46); MONOCYTES ABSOLUTE AUTO 1.01 K/mm3 (0.16-1.47); MONOCYTES PERCENT AUTO 11 % (4-13); Mean Corpuscular HGB 27.4 pg (26.0-34.0); Mean Corpuscular HGB Conc 29.4 g/dL (31.5-36.5); Mean Corpuscular Volume 93 fL (80-100); Mean Platelet Volume 11.3 fL (9.1-12.4); NEUTROPHILS ABSOLUTE AUTO 7.02 K/mm3 (1.96-9.15); NEUTROPHILS PERCENT AUTO 77 % (41-73); NRBC ABSOLUTE 0.03 K/mm3 (0.00-0.02); NRBC Auto 0.3 /100 WBC (0.0-0.2); Platelet Count 189 K/mm3 (150-400); RDW Coefficient Variation 18.1 % (11.7-14.2); RDW Standard Deviation 58.2 fL (35.1-46.3); Red Blood Cell Count 4.02 M/mm3 (3.80-5.20); White Blood Cell Count 9.13 K/mm3 (4.00-11.30)
[2017-12-29 05:23] LABS: Albumin, Blood 2.5 g/dL (3.4-5.0); Anion Gap 10 mmol/L (6-16); Blood Urea Nitrogen 108 mg/dL (8-24); Bun/Creatinine Ratio 45.2 (12.0-20.0); CO2, Blood 26 mmol/L (21-32); Chloride, Blood 104 mmol/L (98-108); Creatinine, Blood 2.39 mg/dL (0.40-1.00); Glomerular Filtration Rate 22 (60-); Glucose, Blood 119 mg/dL (70-99); Magnesium, Blood 1.9 mg/dL (1.6-2.4); Phosphorus, Blood 5.1 mg/dL (2.5-4.9); Potassium, Blood 4.4 mmol/L (3.5-5.5); Sodium, Blood 140 mmol/L (136-145)
[2017-12-29] MEDS ORDERED: OMEPRAZOLE MAGN20 MG PO (11:53)
== END 2017-12-29 11:56 ==
LOC: ER 04:05 → MEDS 04:06 → ER 12-29 04:06 → MEDS 12-29 04:06 → ENPENDDIS 12-29 11:00 → MEDS 12-29 11:56
PROVIDERS: Emergency Medicine; Family Medicine; Internal Medicine Nephrology
DX: K92.0 Hematemesis (principal); E11.22 Type 2 diabetes mellitus with diabetic chronic kidney disease; N18.4 Chronic kidney disease, stage 4 (severe); D63.1 Anemia in chronic kidney disease; I25.5 Ischemic cardiomyopathy; E03.9 Hypothyroidism, unspecified; I50.42 Chronic combined systolic (congestive) and diastolic (congestive) heart failure; J44.9 Chronic obstructive pulmonary disease, unspecified; E83.51 Hypocalcemia; K59.00 Constipation, unspecified; K43.9 Ventral hernia without obstruction or gangrene; F17.210 Nicotine dependence, cigarettes, uncomplicated; E66.01 Morbid (severe) obesity due to excess calories; E87.2 Acidosis; Z86.73 Personal history of transient ischemic attack (TIA), and cerebral infarction without residual deficits; Z79.82 Long term (current) use of aspirin; Z88.5 Allergy status to narcotic agent; Z79.899 Other long term (current) drug therapy
CPT/HCPCS: 36415; 74176; 80053; 80069; 82272; 82306; 82947; 83735; 83880; 83970; 85014; 85018; 85025; 86850; 86900; 86901; 94640; 94760; 96374; 99285-25; C9113; G0378; J2405; J7030